=== PATIENT | female | born 1965 | race Two or more races ===

== ENCOUNTER 2022-03-29 12:37 | Outpatient (REF) | payer MEDICARE, MEDICAID, SELFPAY ==
[2022-03-29 14:14] LABS: Thyroid Stimulating Hormone 1.29 uIU/mL (0.32-4.0)
[2022-03-29 14:39] LABS: Folate 13.7 ng/mL (> or = 4.0); Vitamin B12 678 pg/mL (200-900)
== END 2022-03-29 12:38 | disposition home or self-care (01) ==
LOC: HO.LAB 12:37
PROVIDERS: PCP Hospitalist; Visit Provider Psychiatry & Neurology Neurology
DX: G40.909 Epilepsy, unspecified, not intractable, without status epilepticus (principal); Z79.899 Other long term (current) drug therapy
CPT/HCPCS: 36415; 80164; 82607; 82746; 84443

== ENCOUNTER 2022-05-18 14:07 | Outpatient (REF) | payer MEDICARE, MEDICAID, SELFPAY | END 2022-05-18 14:08 | disposition home or self-care (01) | LOC: HO.XRAY 14:07 | PROVIDERS: Visit Provider Radiology Diagnostic Radiology | DX: Z13.89 Encounter for screening for other disorder (principal) ==

== ENCOUNTER 2022-05-24 10:17 | Outpatient (REF) | payer MEDICARE, MEDICAID, SELFPAY ==
--- NOTE | ~2022-05-24 | MR_ITS ---
EXAMINATION: MRI OF THE BRAIN WITHOUT CONTRAST CLINICAL INFORMATION: Seizure disorder. COMPARISON: There are no prior studies available for comparison. TECHNIQUE: MRI of the brain was obtained using routine sequences without contrast. FINDINGS: No diffusion abnormalities are identified to suggest an acute or subacute infarct. No mass effect or midline shift is seen. The ventricles and sulci are normal in size. There are a few scattered areas of hyperintense T2 and FLAIR signal in the white matter which are nonspecific. The hippocampi are symmetric in size and signal. No extra-axial fluid collections are seen. The brainstem and cerebellum are normal. No pathologic magnetic susceptibility artifact is identified on the gradient refocused acquisition. The craniovertebral junction, marrow signal, and midline structures are normal. There are severe spondylitic changes in the upper cervical spine with heterogenous marrow signal. The major intracranial flow-voids at the level of the [place] are preserved. The dural venous sinus flow-voids are maintained. There is trace fluid in the right mastoid tip. There is polypoid mucoperiosteal thickening in the right maxillary sinus and there is opacification of the left greater than right frontal sinuses. MR/MR head/brain wo con IMPRESSION: 1.There are no acute bleeds or infarcts. No masses are demonstrated. 2. There are a few foci of nonspecific white matter hyperintense T2/FLAIR signal. The hippocampi are symmetric in size and signal. 3. There are severe spondylitic changes throughout the cervical spine with heterogenous marrow signal. Recommend MRI scan of the cervical spine without and with contrast for further assessment.
== END 2022-05-24 10:18 | disposition home or self-care (01) ==
LOC: HO.MRI 10:17
PROVIDERS: Visit Provider Psychiatry & Neurology Neurology
DX: G40.909 Epilepsy, unspecified, not intractable, without status epilepticus (principal)
CPT/HCPCS: 70551

== ENCOUNTER 2022-06-27 10:18 | Outpatient (REF) | payer MEDICARE, MEDICAID, SELFPAY ==
[2022-06-29 00:39] LABS: HPV mRNA E6/E7 rflx Not Detected (Not Detected)
== END 2022-06-27 10:19 | disposition home or self-care (01) ==
LOC: HO.LNP 10:18
PROVIDERS: PCP Hospitalist; Visit Provider Obstetrics & Gynecology
DX: Z01.419 Encounter for gynecological examination (general) (routine) without abnormal findings (principal); N83.209 Unspecified ovarian cyst, unspecified side; Z90.710 Acquired absence of both cervix and uterus
CPT/HCPCS: 87624; 88142; 99212

== ENCOUNTER → 2022-07-18 14:07 | Outpatient (BNVA) | payer MEDICARE, MEDICAID, SELFPAY | PROVIDERS: PCP Hospitalist; Visit Provider Urology | DX: R33.9 Retention of urine, unspecified (principal) | CPT/HCPCS: 51798; 99202 ==

== ENCOUNTER 2022-07-19 10:55 | Outpatient (REF) | payer MEDICARE, MEDICAID, SELFPAY ==
--- NOTE | ~2022-07-19 | US_ITS ---
EXAMINATION: US PELVIS CLINICAL INFORMATION: Ovarian cyst; history of partial hysterectomy. COMPARISON: None TECHNIQUE: Ultrasound of the pelvis is performed using both transabdominal and transvaginal transducers along with Doppler. Transvaginal imaging is performed due to inadequate visualization transabdominally. FINDINGS: Uterus: The uterus is surgically absent and is not identified. Adnexa: Neither ovary is visualized with certainty. Within the right adnexal region, a 1.7 x 1.2 x 2.4 cm hypoechoic, circumscribed collection is seen, without associated color Doppler flow. No pelvic free fluid is seen. US/US pelvic and transvaginal IMPRESSION: The uterus and bilateral ovaries are nonvisualized. A hypoechoic collection is seen within the right adnexa, possibly a complex paraovarian cyst, or possibly an endometrioma. This could be more fully evaluated with pelvic MRI, if clinically indicated. At a minimum, consider follow-up ultrasound imaging in 3 months to ensure stability/regression.
== END 2022-07-19 10:56 | disposition home or self-care (01) ==
LOC: HO.US 10:55
PROVIDERS: Visit Provider Obstetrics & Gynecology
DX: N83.209 Unspecified ovarian cyst, unspecified side (principal)
CPT/HCPCS: 76830; 76856

== ENCOUNTER 2022-07-20 14:17 | Outpatient (REF) | payer MEDICARE, MEDICAID, SELFPAY ==
--- NOTE | ~2022-07-20 | MM_ITS ---
EXAMINATION: MM SCREENING DIGITAL BREAST TOMOSYNTHESIS, BILATERAL CLINICAL INFORMATION: Screening. Asymptomatic. Remote prior mammography decades ago, no longer available. Family history breast cancer, mother. The lifetime risk of breast cancer based on the Tyrer-Cuzick Model is 12%. COMPARISON: None (current study represents new baseline exam). TECHNIQUE: Digital breast tomosynthesis is performed in both the craniocaudal and mediolateral oblique views along with computer-aided detection (CAD). Synthesized 2D images are generated from the tomosynthesis. FINDINGS: There are scattered areas of fibroglandular density (ACR BI-RADS breast composition Category b). There is no significant mass or architectural abnormality. The axilla are unremarkable. The skin contours are smooth. There are regional calcifications in both breasts central upper breast, more numerous on left. These are combination of round and punctate calcifications. Patient will be recalled to obtain magnification views to fully characterize new baseline appearance. MM/MM tomosynthesis screening BI IMPRESSION: Bilateral regional calcifications central and upper breasts, more numerous on left. ASSESSMENT: BI-RADS 0: Incomplete - Need Additional Imaging Evaluation RECOMMENDATION: 1. Additional views of the bilateral breasts (magnification CC, magnification ML). 2. Radiology department staff will contact the patient for additional imaging. This patient's information was entered into a reminder system with a target due date for their next mammogram.
== END 2022-07-20 14:18 | disposition home or self-care (01) ==
LOC: HO.MAMMO 14:17
PROVIDERS: Visit Provider Obstetrics & Gynecology
DX: Z12.31 Encounter for screening mammogram for malignant neoplasm of breast (principal)
CPT/HCPCS: 77063; 77067

== ENCOUNTER 2022-07-28 13:36 | Outpatient (REF) | payer MEDICARE, MEDICAID, SELFPAY ==
--- NOTE | ~2022-07-28 | MM_ITS ---
EXAMINATION: MM DIAGNOSTIC DIGITAL MAMMOGRAPHY, BILATERAL CLINICAL INFORMATION: Bilateral calcifications on baseline study. COMPARISON: Mammography: Mammography of 07/20/2022. TECHNIQUE: Digital mammography is performed in the following views: Spot magnification views of both breasts in craniocaudal and 90 degree mediolateral views. FINDINGS: There are scattered areas of fibroglandular density (ACR BI-RADS breast composition Category b). Calcifications are noted within the upper outer aspects of both breasts which are rounded and punctate. They do not layer on 90 degree views. No linear or branching forms are identified. Recommend bilateral mammography with spot magnification views. Results are provided to the patient at time of visit by the technologist. MM/MM added views BI IMPRESSION: Probably benign calcifications bilaterally for which 6 month follow-up studies are recommended. ASSESSMENT: BI-RADS 3: Probably Benign. RECOMMENDATION: Diagnostic mammography in 6 months. This patient's information was entered into a reminder system with a target due date for their next mammogram.
== END 2022-07-28 13:37 | disposition home or self-care (01) ==
LOC: HO.MAMMO 13:36
PROVIDERS: PCP Hospitalist; Visit Provider Obstetrics & Gynecology
DX: R92.1 Mammographic calcification found on diagnostic imaging of breast (principal)
CPT/HCPCS: 77066

== ENCOUNTER → 2022-08-03 10:35 | Outpatient (BNVA) | payer MEDICARE, MEDICAID, SELFPAY | PROVIDERS: PCP Hospitalist; Visit Provider Obstetrics & Gynecology | DX: N83.291 Other ovarian cyst, right side (principal) | CPT/HCPCS: 99212 ==

== ENCOUNTER → 2022-08-09 10:15 | Outpatient (BNVA) | payer MEDICARE, MEDICAID, SELFPAY | PROVIDERS: PCP Hospitalist; Visit Provider Physician Assistant | DX: K59.00 Constipation, unspecified (principal); K62.5 Hemorrhage of anus and rectum; R33.9 Retention of urine, unspecified | CPT/HCPCS: 99202 ==

== ENCOUNTER 2022-08-28 11:05 | Outpatient (REF) | payer MEDICARE, MEDICAID, SELFPAY ==
--- NOTE | ~2022-08-28 | MR_ITS ---
EXAMINATION: MR PELVIS WITHOUT AND WITH CONTRAST CLINICAL INFORMATION: Ovarian cyst. History of hysterectomy greater than 30 years ago for uterine cancer. COMPARISON: Pelvic ultrasound June 2022. TECHNIQUE: Sagittal, axial and coronal sequences through the pelvis with and without contrast. Patient received 10 mL Gadavist IV contrast. FINDINGS: The uterus has been removed. Ovaries are not identified. There is oval-shaped soft tissue seen in the pelvis posterior to the right side of the bladder, adjacent to the right side of the vaginal cuff and anterior to the right side of the sigmoid colon. This measures 1.4 x 2.6 x 1 cm in longitudinal transverse and AP dimension. This is low to intermediate signal on T1-weighted sequences, low signal on T2-weighted sequences and demonstrates mild homogeneous enhancement. There is diverticulosis of the distal colon. There are areas of apparent wall thickening in the distal colon and rectum which may be due to diverticular disease and underdistention. The uterus has been removed. The ovaries are not seen and may have been removed. No ascites. No adenopathy. No hernia. Postsurgical changes to the low midline abdominal wall. Degenerative changes of the spine. MR/MR pelvis wo/w con IMPRESSION: Post total hysterectomy. Ovaries are not seen. 1.4 x 2.6 x 1 cm low signal mass with mild homogeneous enhancement adjacent to the right posterior bladder wall. Differential would include recurrent uterine cancer, desmoid tumor related to patient's surgery, or other fibrous or soft tissue tumor. This does not have signal characteristics to suggest endometrioma. Comparison with old outside imaging if available is recommended. Otherwise, short-term interval follow up ultrasound or MRI or PET/CT scan should be considered.
== END 2022-08-28 11:06 | disposition home or self-care (01) ==
LOC: HO.MRI 11:05
PROVIDERS: PCP Hospitalist; Visit Provider Obstetrics & Gynecology
DX: N83.299 Other ovarian cyst, unspecified side (principal)
CPT/HCPCS: 72197; A9585

== ENCOUNTER → 2022-09-07 12:19 | Outpatient (BNVA) | payer MEDICARE, MEDICAID, SELFPAY | PROVIDERS: PCP Hospitalist; Visit Provider Obstetrics & Gynecology | DX: R19.00 Intra-abdominal and pelvic swelling, mass and lump, unspecified site (principal); Z85.42 Personal history of malignant neoplasm of other parts of uterus | CPT/HCPCS: 99212 ==

== ENCOUNTER → 2022-09-27 10:44 | Outpatient (BNVA) | payer MEDICARE, MEDICAID, SELFPAY | PROVIDERS: PCP Hospitalist; Visit Provider Urology | DX: R33.9 Retention of urine, unspecified (principal); R19.00 Intra-abdominal and pelvic swelling, mass and lump, unspecified site; Z85.42 Personal history of malignant neoplasm of other parts of uterus; Z79.899 Other long term (current) drug therapy | CPT/HCPCS: 51798; 99212 ==

== ENCOUNTER 2022-11-09 11:14 | Day surgery (SDC) | payer MEDICARE, MEDICAID, SELFPAY ==
--- NOTE | 2022-11-08 13:22 | P.CONAN_ITS ---
Documented by User: Amy Frias NP 11/08/22 13:23 HPI - Anesthesia Eval Consult details Narrative: 57yo F for Colonoscopy [facility] resident. 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 Dry eyes GERD (gastroesophageal reflux disease) Hyperlipidemia Hypothyroidism Insomnia Malignant melanoma of skin Muscle weakness Nausea Ovarian cyst Personal history of malignant neoplasm of uterus Schizo affective schizophrenia Seasonal allergic rhinitis Skin cancer Sleep terrors Spinal stenosis Suicidal ideation Unsteadiness on feet Uterine cancer Wheezing Social History Social History Housing Other:: prison Are you a primary child care cook to a significant other at home: No Do you presently have visiting nurse or other home services: No Patient Tobacco Use Status: Never used Tobacco Have you been hit, kicked, punched, or otherwise hurt by someone within the past year? If so, by whom?: No Are you DNR?: No Advance Directives: No Advance Directives Information Provided: Yes Recently lost weight without trying: No Eating poorly because of decreased appetite: No Nutrition Risks: No Nutritional Risk Patient : No Sexual orientation: Straight/Heterosexual Gender identity: Female Meds Allergies Allergy/AdvReac Type Severity Reaction Status Date / Time codeine Allergy Intermediate Hives Verified 09/27/22 10:49 Penicillins Allergy Intermediate Rash Verified 09/27/22 10:49 aspirin Allergy Mild Rash Verified 09/27/22 10:49 Home Medications Medication Instructions Recorded Confirmed Last Taken Type albuterol sulfate 90 mcg/actuation 2 puff inhalation Q6H PRN Wheezing 06/27/22 11/07/22 Unknown History aerosol inhaler atorvastatin 20 mg tablet 20 mg PO DAILY 06/27/22 11/07/22 Unknown History famotidine 20 mg tablet (Pepcid) 20 mg PO DAILY PRN Heartburn 06/27/22 11/08/22 Unknown History fluticasone propionate 50 1 spray intranasal DAILY 06/27/22 11/07/22 Unknown History mcg/actuation nasal spray,suspension (Flonase Allergy Relief) gabapentin 100 mg capsule 200 mg PO TID 06/27/22 11/08/22 Unknown History levothyroxine 75 mcg capsule 75 mcg PO DAILY 06/27/22 11/07/22 Unknown History propranolol 20 mg tablet 20 mg PO BID 06/27/22 11/08/22 Unknown History quetiapine 50 mg tablet (Seroquel) 50 mg PO BID 06/27/22 11/07/22 Unknown History trazodone 50 mg tablet 25 mg PO Q6-8H PRN Anxiety 06/27/22 11/08/22 Unknown History valproic acid 250 mg capsule 500 mg PO BID 06/27/22 11/08/22 Unknown History Cepacol (with benzocain-menth) 2 mariano PO Q8-10H PRN Sore Throat 11/08/22 11/08/22 Unknown History acetaminophen 650 mg tablet 650 mg PO QID PRN Fever 11/08/22 11/08/22 Unknown History benztropine 0.5 mg tablet 0.5 mg PO BID PRN Muscle Spasm 11/08/22 11/08/22 Unknown History bethanechol chloride 50 mg tablet 50 mg PO TID 11/08/22 11/08/22 Unknown History calcium carbonate 600 mg calcium 1,200 mg PO DAILY 11/08/22 11/08/22 Unknown History (1,500 mg) tablet cholecalciferol (vitamin D3) 10 10 mcg PO DAILY 11/08/22 11/08/22 Unknown Histo ry mcg (400 unit) capsule (Vitamin D3) famotidine 20 mg tablet 20 mg PO BID 11/08/22 11/08/22 Unknown History guaifenesin 100 mg/5 mL oral liquid 200 mg PO Q4H PRN Cough 11/08/22 11/08/22 Un known History ibuprofen 600 mg tablet 600 mg PO Q6H PRN Pain 11/08/22 11/08/22 Unknown History lactulose 10 gram/15 mL oral 20 g PO BID 11/08/22 11/08/22 Unknown History solution lanolin alcohols-mineral 1 appl topical DAILY PRN Dry Skin 11/08/22 11/08/22 Unknown History oil-w.petrolatum-ceresin topical cream (Minerin Creme topical) lidocaine 4 % topical patch 1 patch topical DAILY 11/08/22 11/08/22 Unknown History loratadine 10 mg tablet 10 mg PO DAILY PRN Allergy Symptoms 11/08/22 11/08/22 Unknown History melatonin 3 mg tablet 3 mg PO BEDTIME 11/08/22 11/08/22 Unknown History polyethylene glycol 3350 17 gram 17 g PO DAILY PRN Constipation 11/08/22 11/08/22 Unknown History oral powder packet (Miralax) risperidone 1 mg tablet (Risperdal) 1 mg PO BID 11/08/22 11/08/22 Unknown History sennosides 8.6 mg capsule (senna) 8.6 mg PO DAILY PRN Constipation 11/08/22 11/08/22 Unknown History sodium phosphates 19 gram-7 118 ml HI DAILY PRN Constipation 11/08/22 11/08/22 Unknown History gram/118 mL enema (Fleet Enema) terazosin 1 mg capsule 1 mg PO BEDTIME 11/08/22 11/08/22 Unknown History Exam Exam Date and Time: November 08, 2022 1322 Pertinent Lab Results Pertinent Lab Results: Labs from outside facility on chart Assessment and Plan Assessment Anesthesia Assessment: Chart Reviewed Documented by User: Woodrow Hahn MD 11/09/22 12:58 [facility] Past Medical History Medical History Agitation Back pain Chronic cough Chronic pain Chronic pharyngitis Constipation Cough COVID-19 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 Dry eyes GERD (gastroesophageal reflux disease) Hyperlipidemia Hypothyroidism Insomnia Malignant melanoma of skin Muscle weakness Nausea Ovarian cyst Personal history of malignant neoplasm of uterus Schizo affective schizophrenia Seasonal allergic rhinitis Skin cancer Sleep terrors Spinal stenosis Suicidal ideation Unsteadiness on feet Uterine cancer Wheezing Family History Family history of problems with anesthesia: No Surgical History History of Problems with Anesthesia: No Social History Social History Housing Other:: prison Are you a primary child care cook to a significant other at home: No Do you presently have visiting nurse or other home services: No Patient Tobacco Use Status: Never used Tobacco Have you been hit, kicked, punched, or otherwise hurt by someone within the past year? If so, by whom?: No Are you DNR?: No Advance Directives: No Advance Directives Information Provided: Yes Recently lost weight without trying: No Eating poorly because of decreased appetite: No Nutrition Risks: No Nutritional Risk Patient : No Sexual orientation: Straight/Heterosexual Gender identity: Female Meds Allergies Allergy/AdvReac Type Severity Reaction Status Date / Time codeine Allergy Intermediate Hives Verified 09/27/22 10:49 Penicillins Allergy Intermediate Rash Verified 09/27/22 10:49 aspirin Allergy Mild Rash Verified 09/27/22 10:49 Home Medications Medication Instructions Recorded Confirmed Last Taken Type albuterol sulfate 90 mcg/actuation 2 puff inhalation Q6H PRN Wheezing 06/27/22 11/07/22 Unknown History aerosol inhaler atorvastatin 20 mg tablet 20 mg PO DAILY 06/27/22 11/07/22 Unknown History famotidine 20 mg tablet (Pepcid) 20 mg PO DAILY PRN Heartburn 06/27/22 11/08/22 Unknown History fluticasone propionate 50 1 spray intranasal DAILY 06/27/22 11/07/22 Unknown History mcg/actuation nasal spray,suspension (Flonase Allergy Relief) gabapentin 100 mg capsule 200 mg PO TID 06/27/22 11/08/22 Unknown History levothyroxine 75 mcg capsule 75 mcg PO DAILY 06/27/22 11/07/22 Unknown History propranolol 20 mg tablet 20 mg PO BID 06/27/22 11/08/22 Unknown History quetiapine 50 mg tablet (Seroquel) 50 mg PO BID 06/27/22 11/07/22 Unknown History trazodone 50 mg tablet 25 mg PO Q6-8H PRN Anxiety 06/27/22 11/08/22 Unknown History valproic acid 250 mg capsule 500 mg PO BID 06/27/22 11/08/22 Unknown History Cepacol (with benzocain-menth) 2 mariano PO Q8-10H PRN Sore Throat 11/08/22 11/08/22 Unknown History acetaminophen 650 mg tablet 650 mg PO QID PRN Fever 11/08/22 11/08/22 Unknown History benztropine 0.5 mg tablet 0.5 mg PO BID PRN Muscle Spasm 11/08/22 11/08/22 Unknown History bethanechol chloride 50 mg tablet 50 mg PO TID 11/08/22 11/08/22 Unknown History calcium carbonate 600 mg calcium 1,200 mg PO DAILY 11/08/22 11/08/22 Unknown History (1,500 mg) tablet cholecalciferol (vitamin D3) 10 10 mcg PO DAILY 11/08/22 11/08/22 Unknown History mcg (400 unit) capsule (Vitamin D3) famotidine 20 mg tablet 20 mg PO BID 11/08/22 11/08/22 Unknown History guaifenesin 100 mg/5 mL oral liquid 200 mg PO Q4H PRN Cough 11/08/22 11/08/22 Unknown History ibuprofen 600 mg tablet 600 mg PO Q6H PRN Pain 11/08/22 11/08/22 Unknown History lactulose 10 gram/15 mL oral 20 g PO BID 11/08/22 11/08/22 Unknown History solution lanolin alcohols-mineral 1 appl topical DAILY PRN Dry Skin 11/08/22 11/08/22 Unknown History oil-w.petrolatum-ceresin topical cream (Minerin Creme topical) lidocaine 4 % topical patch 1 patch topical DAILY 11/08/22 11/08/22 Unknown History loratadine 10 mg tablet 10 mg PO DAILY PRN Allergy Symptoms 11/08/22 11/08/22 Unknown History melatonin 3 mg tablet 3 mg PO BEDTIME 11/08/22 11/08/22 Unknown History polyethylene glycol 3350 17 gram 17 g PO DAILY PRN Constipation 11/08/22 11/08/22 Unknown History oral powder packet (Miralax) risperidone 1 mg tablet (Risperdal) 1 mg PO BID 11/08/22 11/08/22 Unknown History sennosides 8.6 mg capsule (senna) 8.6 mg PO DAILY PRN Constipation 11/08/22 11/08/22 Unknown History sodium phosphates 19 gram-7 118 ml HI DAILY PRN Constipation 11/08/22 11/08/22 Unknown History gram/118 mL enema (Fleet Enema) terazosin 1 mg capsule 1 mg PO BEDTIME 11/08/22 11/08/22 Unknown History Exam Airway Mallampati Class: II TM Dist: >3cm Neck ROM: Full Denture: Upper Loose/Missing/Broken Teeth: Yes Assessment and Plan Assessment Anesthesia Assessment: Anesthesia Plan Discussed Final Anesthetic Review Family History of Problems with Anesthesia: No History of Problems with Anesthesia: No NPO: Yes ASA Class: III Final Preanesthetic Review: No Changes in Pt Med Stat, Meds/Allgs Chart Reviewed, Consent Obtained/Reviewed and Anes Risks/Benef Reviewed Patient Risk: Intermediate Procedure Risk: Low Anesthetic Plan Anesthetic Plan: MAC: Disposition: Standard PACU
[2022-11-08 13:30] VITALS: BMI 36.5
--- NOTE | 2022-11-09 11:26 | MHC.SHP ---
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 Dry eyes GERD (gastroesophageal reflux disease) Hyperlipidemia Hypothyroidism Insomnia Malignant melanoma of skin Muscle weaknes) History of Previous Operations: Relevant previous surgery/procedure and date(s) (hysterectomy) Allergies: Allergies Allergy/AdvReac Type Severity Reaction Status Date / Time codeine Allergy Intermediate Hives Verified 09/27/22 10:49 Penicillins Allergy Intermediate Rash Verified 09/27/22 10:49 aspirin Allergy Mild Rash Verified 09/27/22 10:49 Review of Systems Sugical H&P ROS: Negative: Constitution, Cardiovascular, Respiratory, Neurological, Psychiatric, Hem-Onc, Allergic/Immunologic, Gastrointestinal, Genitourinary, Musculoskeletal, Integumentary, Endocrine and Eyes/Ears/Nose/Throat Exam Surgical H&P Exam: Normal: HEENT, Normal: Heart, Normal: Lungs, Normal: Extremities, Normal: Abdomen, Normal: Skin and Normal: Neurological Plan Diagnosis/Plan: Unchanged I have reviewed the history and physical and performed a pertinent physical examination on my patient. No changes have occurred unless specified. Time Spent With Patient Time: Total time managing care of this patient today ____ minutes.
[2022-11-09] MEDS: Sodium Phosphate,Mono-Dibasic 133 ML ENEMA PR (11:45)
[2022-11-09 12:02] VITALS: BP 141/82; PULSE 75; RESP 18; TEMP 36.2; O2SAT 99
[2022-11-09] MEDS: Lactated Ringers 1,000 ML 100 ML IVCONT (12:18)
--- NOTE | 2022-11-09 12:55 | W.PM.OPN ---
Operative Note Operative Note Date of Service: 11/09/22 Narrative: Operative Information Procedure Description: Colonoscopy Indication: screening Anesthesia: MAC COLONOSCOPY Instrument: Olympus variable stiffness pediatric scope 190L Colonoscopy Monitoring: Vital signs and clinical assessment, continuous EKG monitoring, Pulse oximetry, Carbon Dioxide monitoring and blood pressure monitoring were done throughout the procedure. Colon withdrawal time was 10 minutes. Procedure: The patient was placed in the left lateral decubitis position and pre-procedure medications were administered. After a digital rectal examination of the ano-rectum, the video colonoscope was inserted into the rectum and advanced through the colon to the cecum/TI. The colonoscope was slowly withdrawn in a retrograde panoramic fashion and the colon mucosa was carefully examined including a retroflexed view of the rectum. Findings and interventions are described below. Procedure Difficulty: difficult due to poor prep Findings: Terminal Ileum-not seen Cecum:normal Ascending Colon: normal Transverse Colon - 5-7 mm sessile polyp removed with cold snare Descending Colon:normal Sigmoid Colon: normal Rectum: Retroflexion with small internal hemorrhoids, grade I, distal erythema bx taken Anorectum - normal Colon preparation: [place] Bowel Preparation Scale Right colon; 0-1 Transverse colon: 1-2 Left colon; 1-2 (0 = Unprepared colon segment with mucosa not seen due to solid stool that cannot be cleared. 1 = Portion of mucosa of the colon segment seen, but other areas of the colon segment not well seen due to staining, residual stool and/or opaque liquid. 2 = Minor amount of residual staining, small fragments of stool and/or opaque liquid, but mucosa of colon segment seen well. 3 = Entire mucosa of colon segment seen well with no residual staining, small fragments of stool or opaque liquid) Impression and Post Procedure Diagnosis: proctitis colon polyp-not retrieved hemorrhoids Plan: High fiber diet leaflet Avoid straining at stool, epsom salts and sitz bath, anusol supps or cream Repeat Colonoscopy in 6 months, and try 2 d of clears next time Above findings were reviewed with the patient and relevant handouts were provided if indicated.
[2022-11-09 12:59] VITALS: BP 133/74; PULSE 76; RESP 16; TEMP 36.1; O2SAT 100
[2022-11-09 13:14] VITALS: BP 145/60; PULSE 70; RESP 16; O2SAT 100
[2022-11-09 13:29] VITALS: BP 135/78; PULSE 72; RESP 16; TEMP 36.1; O2SAT 100
== END 2022-11-09 13:41 | disposition home or self-care (01) ==
PROVIDERS: PCP Hospitalist; Visit Provider Internal Medicine Gastroenterology
PROC: 0DJD8ZZ Inspection of Lower Intestinal Tract, Via Natural or Artificial Opening Endoscopic (ICD-10-PCS; CPT 45378; principal; 2022-11-09 12:30)
DX: Z12.11 Encounter for screening for malignant neoplasm of colon (principal); K63.5 Polyp of colon; K64.0 First degree hemorrhoids; K62.89 Other specified diseases of anus and rectum; K59.00 Constipation, unspecified; K21.9 Gastro-esophageal reflux disease without esophagitis; G89.29 Other chronic pain; M54.9 Dorsalgia, unspecified; M62.81 Muscle weakness (generalized); R05.3 Chronic cough; E78.5 Hyperlipidemia, unspecified; E03.9 Hypothyroidism, unspecified; Z87.820 Personal history of traumatic brain injury; Z86.16 Personal history of COVID-19; Z88.0 Allergy status to penicillin; Z88.8 Allergy status to other drugs, medicaments and biological substances; Z79.51 Long term (current) use of inhaled steroids; Z79.899 Other long term (current) drug therapy
CPT/HCPCS: 45385; 45380; 88305; J2250

== ENCOUNTER → 2022-11-29 09:51 | Outpatient (BNVA) | payer MEDICARE, MEDICAID, SELFPAY | PROVIDERS: PCP Hospitalist; Visit Provider Physician Assistant | DX: K59.00 Constipation, unspecified (principal); K63.5 Polyp of colon; Z98.890 Other specified postprocedural states | CPT/HCPCS: 99212 ==

== ENCOUNTER 2023-01-07 09:50 | Emergency (ER) | payer MEDICARE, MEDICAID, SELFPAY ==
--- NOTE | ~2023-01-07 | XR_ITS ---
EXAMINATION: Left shoulder and left humerus x-rays CLINICAL INFORMATION: Pain post fall COMPARISON: None. TECHNIQUE: 2 views of the left humerus and 3 views of the left shoulder FINDINGS: Left shoulder: Bone alignment is normal. No fracture or dislocation. The glenohumeral joint is normal. There is arthritis at the acromioclavicular joint. There is an undersurface acromial osteophyte. Soft tissues are normal. Left humerus: Bone alignment is normal. No fracture or dislocation. Arthritis at the acromioclavicular joint. Joint spaces are otherwise normal. Question soft tissue swelling. XR/XR humerus LT IMPRESSION: No fracture or dislocation. Arthritis at the acromioclavicular joint.
--- NOTE | ~2023-01-07 | XR_ITS ---
EXAMINATION: Left shoulder and left humerus x-rays CLINICAL INFORMATION: Pain post fall COMPARISON: None. TECHNIQUE: 2 views of the left humerus and 3 views of the left shoulder FINDINGS: Left shoulder: Bone alignment is normal. No fracture or dislocation. The glenohumeral joint is normal. There is arthritis at the acromioclavicular joint. There is an undersurface acromial osteophyte. Soft tissues are normal. Left humerus: Bone alignment is normal. No fracture or dislocation. Arthritis at the acromioclavicular joint. Joint spaces are otherwise normal. Question soft tissue swelling. XR/XR shoulder LT min 2V IMPRESSION: No fracture or dislocation. Arthritis at the acromioclavicular joint.
[2023-01-07 09:54] VITALS: BP 116/69; BP 121/64; PULSE 63; PULSE 66; RESP 16; O2SAT 98; BMI 40.0
--- NOTE | 2023-01-07 10:09 | PC.NURSE ---
pt a&ox3, vss, pt comes in via [facility] after falling at [facility]. 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 -headstrike, -LOC, -thinners. pt verbalizing numbness/tingling in the left extremity. CMS intact. pulses palpable. LE tender to the touch. call veloz placed within reach.
--- NOTE | 2023-01-07 10:33 | ED_ITS ---
HPI - Extremity Problem General Chief complaint: Extremity Injury, Upper Stated complaint: FROM [facility], FALL 2 DAYS AGO, L ARM PAIN Time Seen by Provider: 01/07/23 10:33 Source: patient, EMS and old records reviewed Mode of arrival: EMS Limitations: no limitations History of Present Illness HPI Narrative: 57-year-old female with a history of TBI, cognitive impairment, hx recurrent falls w/ unsteady gait, GERD, HLD, constipation, HLD, pelvic mass (plan for surgery in Jan) who presents to the ER from [facility] for evaluation of left shoulder pain that started today. She states she was sitting in her chair when she felt a sudden pop and crack in the left upper shoulder, left upper arm. She states she did fall 2 days ago onto the left arm after bending down to pick something up on the floor. She had some mild left arm and shoulder pain since then but today's episode was severe. She felt almost like it dislocated and relocated. She has going pain of the left upper extremity. She has limited range of motion. She reports some intermittent numbness and tingling in the distal left arm. No weakness. MD Complaint: extremity pain and extremity swelling Onset (ago): hour(s) Pain Consistency: intermittent Location: left and upper extremity Quality: aching Radiation: distal Relieving factors: immobilization and rest Exacerbating factors: range of motion and palpation Associated symptoms: denies other symptoms Related Data Home Medications Medication Instructions Recorded Confirmed albuterol sulfate 90 mcg/actuation 2 puff inhalation Q6H PRN Wheezing 06/27/22 11/29/22 aerosol inhaler atorvastatin 20 mg tablet 20 mg PO DAILY 06/27/22 11/29/22 fluticasone propionate 50 1 spray intranasal DAILY 06/27/22 11/29/22 mcg/actuation nasal spray,suspension (Flonase Allergy Relief) gabapentin 100 mg capsule 200 mg PO TID 06/27/22 11/29/22 levothyroxine 75 mcg capsule 75 mcg PO DAILY 06/27/22 11/29/22 propranolol 20 mg tablet 20 mg PO BID 06/27/22 11/29/22 quetiapine 50 mg tablet (Seroquel) 50 mg PO BID 06/27/22 11/29/22 trazodone 50 mg tablet 25 mg PO Q6-8H PRN Anxiety 06/27/22 11/29/22 valproic acid 250 mg capsule 500 mg PO BID 06/27/22 11/29/22 Cepacol (with benzocain-menth) 2 mariano PO Q8-10H PRN Sore Throat 11/08/22 11/29/22 acetaminophen 650 mg tablet 650 mg PO QID PRN Fever 11/08/22 11/29/22 benztropine 0.5 mg tablet 0.5 mg PO BID PRN Muscle Spasm 11/08/22 11/29/22 bethanechol chloride 50 mg tablet 50 mg PO TID 11/08/22 11/29/22 calcium carbonate 600 mg calcium 1,200 mg PO DAILY 11/08/22 11/29/22 (1,500 mg) tablet cholecalciferol (vitamin D3) 10 10 mcg PO DAILY 11/08/22 11/29/22 mcg (400 unit) capsule (Vitamin D3) famotidine 20 mg tablet 20 mg PO BID 11/08/22 11/29/22 guaifenesin 100 mg/5 mL oral liquid 200 mg PO Q4H PRN Cough 11/08/22 11/29/22 ibuprofen 600 mg tablet 600 mg PO Q6H PRN Pain 11/08/22 11/29/22 lactulose 10 gram/15 mL oral 20 g PO BID 11/08/22 11/29/22 solution lanolin alcohols-mineral 1 appl topical DAILY PRN Dry Skin 11/08/22 11/29/22 oil-w.petrolatum-ceresin topical cream (Minerin Creme topical) lidocaine 4 % topical patch 1 patch topical DAILY 11/08/22 11/29/22 loratadine 10 mg tablet 10 mg PO DAILY PRN Allergy Symptoms 11/08/22 11/29/22 melatonin 3 mg tablet 3 mg PO BEDTIME 11/08/22 11/29/22 polyethylene glycol 3350 17 gram 17 g PO DAILY PRN Constipation 11/08/22 11/29/22 oral powder packet (Miralax) risperidone 1 mg tablet (Risperdal) 1 mg PO BID 11/08/22 11/29/22 sennosides 8.6 mg capsule (senna) 8.6 mg PO DAILY PRN Constipation 11/08/22 11/29/22 sodium phosphates 19 gram-7 118 ml MO DAILY PRN Constipation 11/08/22 11/29/22 gram/118 mL enema (Fleet Enema) terazosin 1 mg capsule 1 mg PO BEDTIME 11/08/22 11/08/22 Previous Rx's Medication Instructions Recorded hydrocortisone 2.5 % topical cream 1 appl MO BID PRN hemorrhoids #30 08/09/22 with perineal applicator grams (Proctozone-HC) prazosin 2 mg capsule 2 mg PO BEDTIME 90 days #90 caps 09/27/22 peg-electrolyte solution 420 gram 240 ml PO ONCE PRN colon prep 1 11/29/22 oral solution day #4,000 mL polyethylene glycol 3350 17 17 g PO DAILY PRN laxative effect 11/29/22 gram/dose oral powder (Miralax) #510 grams Allergies Allergy/AdvReac Type Severity Reaction Status Date / Time codeine Allergy Intermediate Hives Verified 01/07/23 09:53 Penicillins Allergy Intermediate Rash Verified 01/07/23 09:53 aspirin Allergy Mild Rash Verified 01/07/23 09:53 Review of Systems Review of Systems: Yes all other systems are reviewed and are negative PMFSH Past Medical History Medical History Agitation Back pain Chronic cough Chronic pain Chronic pharyngitis Constipation Cough COVID-19 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 Dry eyes GERD (gastroesophageal reflux disease) Hyperlipidemia Hypothyroidism Insomnia Malignant melanoma of skin Muscle weakness Nausea Ovarian cyst Personal history of malignant neoplasm of uterus Schizo affective schizophrenia Seasonal allergic rhinitis Skin cancer Sleep terrors Spinal stenosis Suicidal ideation Unsteadiness on feet Uterine cancer Wheezing Surgical History (Updated 11/29/22 @ 14:12 by Yanet Butler PA-C) Hx of colonoscopy Social History Social History Housing Other:: residential Are you a primary wound care physician to a significant other at home: No Do you presently have visiting nurse or other home services: No Alcohol intake: never Patient Tobacco Use Status: Never used Tobacco Smoked in Last 30 Days: No Use of substances other than those prescribed or required for medical reasons: No Advance Directives: Yes Advance Directives on File: Yes Advance Directives Date on File: 11/10/22 Patient : No Sexual orientation: Straight/Heterosexual Gender identity: Female Physical Exam Vital Signs: Vital Signs: Last Vital Signs Pulse 56 01/07/23 11:00 Resp 16 01/07/23 11:00 BP 130/73 01/07/23 11:00 Pulse Ox 100 01/07/23 11:00 O2 Del Method Room Air 01/07/23 11:00 BMI result Body Mass Index 40.0 Appearance: Alert. Oriented X3. No acute distress. Head: normocephalic, atraumatic. Eyes: Normal inspection ENT: Normal external inspection Neck: Normal inspection. Neck supple. CVS: Normal heart rate and rhythm. Pulses normal. Respiratory: No respiratory distress. Breath sounds normal. Abdomen: Soft and nontender. +BS x4 Skin: Skin warm and dry. Normal skin color. Normal skin turgor. No rashes. Extremities: No lower extremity edema. No joint swelling. Normal inspection of left upper extremity with some mild tenderness of the proximal humerus. She is able to passively abduct the shoulder to 180 degrees but with discomfort. No tenderness or limited range of motion of the left elbow. Neurovascularly intact distally. Compartments are soft compressible. Neuro/psych: Oriented X 3. No motor deficit. No sensory deficit. Delayed responses at times, speech is comprehensible. Neuro exam is nonfocal Medical Decision Making Medical Decision Making [facility] Narrative: 57-year-old female presents to the ER for evaluation of left shoulder pain that started today after hearing and feeling a ?crack? sensation. She has limited range of motion and some tenderness on exam. X-rays were performed which were unremarkable. EKG was performed which showed some J-point elevation. No known prior EKG in our system. Therefore blood work was done which revealed a troponin of less than 2.7. She has no chest pain. No evidence of ACS or cardiac etiology of her left shoulder pain. At this time she is stable for discharge home back to [facility]. Dr. gomes agrees Differential Diagnosis Differential Diagnoses: The differential diagnosis associated with the presentation includes Left shoulder strain, left shoulder sprain, proximal humerus fracture, clavicular fracture, rotator cuff injury, dislocation, paresthesias, less likely ACS or CVA Admission/Observation Consideration of admission/observation: Escalation of care including admission/observation considered Considered observation/admission if cardiac workup intact being positive however it was unremarkable. Consult Healthcare Provider Management of the patient was discussed with: Broadcast Maintenance Engineer Dr. gomes from [facility] Lab Data [facility] Lab Attestation statement: I reviewed the patient's lab results. Leukopenia, anemia, negative troponin 01/07/23 12:43 01/07/23 12:43 Labs: Lab Results 01/07/23 01/07/23 01/07/23 Range/Units 12:43 12:43 12:43 WBC 4.4 L (4.8-10.8) X10*3/uL RBC 3.63 L (4.20-5.50) X10*6/uL Hgb 11.3 L (12.0-16.0) g/dl Hct 34.6 L (37.0-47.0) % MCV 95.3 (80.0-98.0) fL MCH 31.1 (27.0-33.0) pg MCHC 32.7 (31.0-35.0) g/dl RDW 11.9 (11.0-16.0) % Plt Count 161 (160-400) X10*3/uL MPV 9.8 (9.4-12.3) fL Immature Gran % (Auto) 0.2 (0.0-0.4) % Neut % (Auto) 47.2 (45-73) % Lymph % (Auto) 36.4 (20-40) % Johnston % (Auto) 12.3 H (2-11) % Eos % (Auto) 3.2 (0-4) % Baso % (Auto) 0.7 (0-2) % Lymph # (Auto) 1.6 (1.2-4.9) X10*3/uL Johnston # (Auto) 0.5 (0.1-1.2) X10*3/uL Eos # (Auto) 0.1 (0.0-0.4) X10*3/uL Baso # (Auto) 0.0 (0.0-0.2) X10*3/uL Abs Immat Gran (auto) 0.01 (0.00-0.03) X10*3/uL Absolute Neuts (auto) 2.1 (2.0-8.3) x10*3/uL Absolute Nucleated RBC 0.000 (0.0-0.012) X10*3/uL Nucleated RBC % (auto) 0.0 (0.0-0.2) /100WBC Sodium 141 (135-145) mmol/L Potassium 4.2 (3.3-5.1) mmol/L Chloride 107 (96-108) mmol/L Carbon Dioxide 27 (22-29) mmol/L Anion Gap 11 L (12-20) BUN 20 H (9-16) mg/dL Creatinine 0.80 (0.5-1.4) mg/dL Estim Creat Clear Calc 100.8 Estimated GFR > 60 Random Glucose 75 (60-115) mg/dL Calcium 9.0 (8.4-10.2) mg/dL Magnesium 2.3 (1.6-2.6) mg/dL Total Bilirubin 0.4 (0.0-1.0) mg/dL Direct Bilirubin 0.1 (0.0-0.5) mg/dL AST 13 (5-31) U/L ALT 11 (0-31) U/L Alkaline Phosphatase 67 (39-117) U/L Troponin I High Sens < 2.7 (<3.5-17.0) ng/L Total Protein 6.5 (6.5-8.0) g/dL Albumin 3.7 (3.5-5.0) g/dL Independent Interpretation I performed an independent interpretation of an: EKG and Plain X-Ray Interpretation: X-ray of the shoulder and humerus reviewed, no appreciated fracture, agree 3 to instructional systems specialist repeat EKG with normal sinus rhythm, first-degree AV block, MO interval 218. Ventricular rate 60 beats per minute, there is some J-point elevation in leads 1, 2, aVL. No prior ECG for comparison Radiology Impression Discussion of test interpretation with radiology: I have reviewed the radiologist's reading. Radiologist Impression: EXAMINATION: Left shoulder and left humerus x-rays CLINICAL INFORMATION: Pain post fall? COMPARISON: None.? TECHNIQUE: 2 views of the left humerus and 3 views of the left shoulder? FINDINGS: Left shoulder: Bone alignment is normal. No fracture or dislocation. The glenohumeral joint is normal. There is arthritis at the acromioclavicular joint. There is an undersurface acromial osteophyte. Soft tissues are normal. Left humerus: Bone alignment is normal. No fracture or dislocation. Arthritis at the acromioclavicular joint. Joint spaces are otherwise normal. Question soft tissue swelling. XR/XR shoulder LT min 2V IMPRESSION: No fracture or dislocation. Arthritis at the acromioclavicular joint.? Discharge Plan Discharge Clinical Impression: Acute pain of left shoulder Patient Disposition: Xfer SNF Transfer Details: [facility] Instructions: Arm Pain (ED) Additional Instructions: Your x-rays today did not show any broken bones. Your lab workup was unremarkable. Follow-up with your doctor at [facility]. Take Motrin Tylenol as needed for pain. Apply ice to the area as needed for pain. If you develop new or worsening symptoms call 911 or come back to the ER for further evaluation. Prescriptions: No Action acetaminophen 650 mg Tablet 650 mg PO QID PRN (Reason: Fever) benztropine 0.5 mg Tablet 0.5 mg PO BID PRN (Reason: Muscle Spasm) calcium carbonate 600 mg calcium (1,500 mg) Tablet 1,200 mg PO DAILY bethanechol chloride 50 mg tablet 50 mg PO TID Cepacol (with benzocain-menth) 2 mariano PO Q8-10H PRN (Reason: Sore Throat) famotidine 20 mg Tablet 20 mg PO BID Fleet Enema 19-7 gram/118 mL Enema 118 ml MO DAILY PRN (Reason: Constipation) lidocaine 4 % Adhesive Patch,Medicated 1 patch TOPICAL DAILY polyethylene glycol 3350 [Miralax] 17 gram Powder In Packet 17 g PO DAILY PRN (Reason: Constipation) melatonin 3 mg Tablet 3 mg PO BEDTIME guaifenesin 100 mg/5 mL Liquid 200 mg PO Q4H PRN (Reason: Cough) ibuprofen 600 mg Tablet 600 mg PO Q6H PRN (Reason: Pain) loratadine 10 mg Tablet 10 mg PO DAILY PRN (Reason: Allergy Symptoms) lactulose 10 gram/15 mL Solution 20 g PO BID Minerin Creme Cream 1 appl TOPICAL DAILY PRN (Reason: Dry Skin) risperidone [Risperdal] 1 mg Tablet 1 mg PO BID senna 8.6 mg Capsule 8.6 mg PO DAILY PRN (Reason: Constipation) Rx Instructions: two tablets terazosin 1 mg Capsule 1 mg PO BEDTIME cholecalciferol (vitamin D3) [Vitamin D3] 10 mcg (400 unit) Capsule 10 mcg PO DAILY albuterol sulfate 90 mcg/actuation HFA aerosol inhaler 2 puff inhalation Q6H PRN (Reason: Wheezing) atorvastatin 20 mg tablet 20 mg PO DAILY fluticasone propionate [Flonase Allergy Relief] 50 mcg/actuation spray,suspension 1 spray intranasal DAILY Rx Instructions: administer into each nostril gabapentin 100 mg capsule 200 mg PO TID levothyroxine 75 mcg capsule 75 mcg PO DAILY propranolol 20 mg tablet 20 mg PO BID quetiapine [Seroquel] 50 mg tablet 50 mg PO BID trazodone 50 mg tablet 25 mg PO Q6-8H PRN (Reason: Anxiety) valproic acid 250 mg capsule 500 mg PO BID hydrocortisone [Proctozone-HC] 2.5 % cream with perineal applicator 1 appl MO BID PRN (Reason: hemorrhoids) Qty: 30 3RF Rx Instructions: apply MO BID prn prazosin 2 mg capsule 2 mg PO BEDTIME 90 Days Qty: 90 1RF peg-electrolyte soln 420 gram recon soln 240 ml PO ONCE PRN (Reason: colon prep) 1 Days Qty: 4000 0RF Rx Instructions: Start at 6:00pm the evening before procedure, drink one 8oz glass every 15 minutes until complete polyethylene glycol 3350 [Miralax] 17 gram/dose powder 17 g PO DAILY PRN (Reason: laxative effect) Qty: 510 6RF Rx Instructions: BID x 7 days prior to prep day
[2023-01-07 11:00] VITALS: BP 130/73; PULSE 56; RESP 16; O2SAT 100
--- NOTE | 2023-01-07 11:04 | PC.NURSE ---
pt returned from x-ray, vss, pt verbalizing 7/10 pain in left extremity. call veloz placed within reach. will continue to monitor.
--- NOTE | 2023-01-07 12:01 | ECG_ITS ---
Test Reason : left arm pain Blood Pressure : / mmHG Vent. Rate : 060 BPM Atrial Rate : 060 BPM P-R Int : 218 ms QRS Dur : 088 ms QT Int : 438 ms P-R-T Axes : 082 008 028 degrees QTc Int : 438 ms Poor data quality Sinus rhythm with 1st degree A-V block Otherwise normal ECG No previous ECGs available Referred By: Cassidy Kingston Electronically Signed By:VADIM BALL MD
[2023-01-07 12:47] LABS: MANUAL DIFF FLAG NO
[2023-01-07 12:59] LABS: Basophils Percent Auto 0.7 % (0-2); Eosinophils Absolute Auto 0.1 X10*3/uL (0.0-0.4); Eosinophils Percent Auto 3.2 % (0-4); Hematocrit 34.6 % (37.0-47.0); Hemoglobin 11.3 g/dl (12.0-16.0); Imm Gran Abs Auto 0.01 X10*3/uL (0.00-0.03); Imm Gran Pct Auto 0.2 % (0.0-0.4); Lymphocytes Absolute Auto 1.6 X10*3/uL (1.2-4.9); Lymphocytes Percent Auto 36.4 % (20-40); Mean Corpuscular HGB Conc 32.7 g/dl (31.0-35.0); Mean Corpuscular Hemoglobin 31.1 pg (27.0-33.0); Mean Corpuscular Volume 95.3 fL (80.0-98.0); Mean Platelet Volume 9.8 fL (9.4-12.3); Monocytes Absolute Auto 0.5 X10*3/uL (0.1-1.2); Monocytes Percent Auto 12.3 % (2-11); Neutrophils Absolute Auto 2.1 x10*3/uL (2.0-8.3); Neutrophils Percent Auto 47.2 % (45-73); Platelet Count 161 X10*3/uL (160-400); Red Blood Count 3.63 X10*6/uL (4.20-5.50); Red Cell Distribution Width 11.9 % (11.0-16.0); White Blood Count 4.4 X10*3/uL (4.8-10.8)
[2023-01-07 13:09] LABS: Alanine Aminotransferase 11 U/L (0-31); Albumin Level 3.7 g/dL (3.5-5.0); Alkaline Phosphatase 67 U/L (39-117); Anion Gap 11 (12-20); Aspartate Amino Transferase 13 U/L (5-31); Bilirubin Direct 0.1 mg/dL (0.0-0.5); Bilirubin Total 0.4 mg/dL (0.0-1.0); Blood Urea Nitrogen 20 mg/dL (9-16); Carbon Dioxide 27 mmol/L (22-29); Chloride 107 mmol/L (96-108); Creatinine Clr Calc Pharmacy 100.8; Estimated Glomerular Filt Rate > 60; Glucose Random 75 mg/dL (60-115); Magnesium 2.3 mg/dL (1.6-2.6); Potassium 4.2 mmol/L (3.3-5.1); Sodium 141 mmol/L (135-145); Total Protein 6.5 g/dL (6.5-8.0)
[2023-01-07 13:20] LABS: Troponin-I High Sensitivity < 2.7 ng/L (<3.5-17.0)
[2023-01-07] MEDS: Acetaminophen 325 MG TABLET 975 MG PO (13:25)
--- NOTE | 2023-01-07 13:27 | PC.NURSE ---
medication administered per provider order.
--- NOTE | 2023-01-07 14:39 | PC.NURSE ---
report given to RN at [facility] in [place] - pt waiting for ems to be transported.
== END 2023-01-07 15:12 | disposition skilled nursing facility (03) ==
PROVIDERS: Physician Assistant; Emergency Provider Emergency Medicine Emergency Medical Services
DX: S49.92XA Unspecified injury of left shoulder and upper arm, initial encounter (principal); M25.512 Pain in left shoulder; I44.0 Atrioventricular block, first degree; R26.81 Unsteadiness on feet; W01.10XA Fall on same level from slipping, tripping and stumbling with subsequent striking against unspecified object, initial encounter; Y93.9 Activity, unspecified; Y92.9 Unspecified place or not applicable; Y99.9 Unspecified external cause status; Z79.899 Other long term (current) drug therapy
CPT/HCPCS: 36415; 73030; 73060; 80048; 80076; 83735; 84484; 85025; 93005; 99285

== ENCOUNTER → 2023-01-07 12:01 | Outpatient (BNV) | payer MEDICARE, MEDICAID, SELFPAY | PROVIDERS: Emergency Provider Emergency Medicine Emergency Medical Services; Visit Provider Internal Medicine Cardiovascular Disease | DX: I44.0 Atrioventricular block, first degree (principal) | CPT/HCPCS: 93010 ==

== ENCOUNTER 2023-02-02 10:48 | Outpatient (REF) | payer MEDICARE, MEDICAID, SELFPAY ==
--- NOTE | ~2023-02-02 | MM_ITS ---
EXAMINATION: MM DIAGNOSTIC DIGITAL BREAST TOMOSYNTHESIS, BILATERAL CLINICAL INFORMATION: 6 month interval follow-up bilateral calcifications. COMPARISON: Mammography: 07/28/2022, and 07/20/2022. TECHNIQUE: Digital breast tomosynthesis is performed in both the craniocaudal and mediolateral oblique views along with computer-aided detection (CAD). Synthesized 2D images are generated from the tomosynthesis. In addition, 2-D spot magnification right CC and ML views, as well as 2-D spot magnification left CC and ML views were obtained. FINDINGS: There are scattered areas of fibroglandular density (ACR BI-RADS breast composition Category b). Spot magnification views demonstrate the calcifications in the left upper central breast are stable in number and configuration without aggressive change. Morphology is round and punctate. Likewise, calcifications in the central slightly outer right breast are also stable in number and configuration without aggressive change. Morphology is round and punctate. The parenchyma remains unchanged in appearance with a somewhat nodular pattern. No dominant masses, or areas of architectural distortion identified. Overall no change. MM/MM tomosynthesis diagnostic BI IMPRESSION: 1. Calcifications in both breasts are stable without aggressive changes. Six-month interval follow-up mammography with magnification views bilaterally recommended. 2. No findings suspicious for malignancy in either breast. ASSESSMENT: BI-RADS BI-RADS 3 - Probably benign finding(s) - 6 month follow-up suggested RECOMMENDATION: 6 Month F/U Results were provided to the patient at time of visit by the technologist. This patient's information was entered into a reminder system with a target due date for their next mammogram.
== END 2023-02-02 10:49 | disposition home or self-care (01) ==
LOC: HO.MAMMO 10:48
PROVIDERS: Visit Provider Obstetrics & Gynecology
DX: R92.1 Mammographic calcification found on diagnostic imaging of breast (principal)
CPT/HCPCS: 77062; 77066

== ENCOUNTER → 2023-02-02 11:00 | Outpatient (BNV) | payer MEDICARE, MEDICAID, SELFPAY | PROVIDERS: Visit Provider Radiology Diagnostic Radiology | DX: R92.1 Mammographic calcification found on diagnostic imaging of breast (principal) | CPT/HCPCS: 77062; 77066; G0279 ==

== ENCOUNTER 2023-03-28 11:31 | Outpatient (AMB) | payer MEDICARE, MEDICAID, SELFPAY ==
--- NOTE | 2023-03-28 11:43 | MHC.OFFVIS ---
Intake Intake Visit Reasons: 6m follow up Intake Note: Patient is Present for Follow Up Urology Medication:Bethanechol, Terazosin Antibiotic Allergies: Penicillins Blood Thinners: None PVR: 0ml Allergies codeine Allergy (Intermediate, Verified 01/07/23 09:53) Hives Penicillins Allergy (Intermediate, Verified 01/07/23 09:53) Rash aspirin Allergy (Mild, Verified 01/07/23 09:53) Rash Medication List - Last Reconciled 03/28/23 by Kris Valadez MD acetaminophen 650 mg PO QID PRN albuterol sulfate 90 mcg/actuation 2 puffs inhalation Q6H PRN atorvastatin 20 mg PO DAILY benztropine 0.5 mg PO BID PRN bethanechol chloride 100 mg (2 x 50 mg) PO TID 60 days calcium carbonate 1,200 mg PO DAILY [Cepacol (with benzocain-menth) 2 mariano PO Q8-10H PRN] cholecalciferol (vitamin D3) (Vitamin D3) 10 mcg PO DAILY famotidine 20 mg PO BID fluticasone propionate 50 mcg/actuation (Flonase Allergy Relief) 1 spray intranasal DAILY gabapentin 200 mg PO TID guaifenesin 200 mg PO Q4H PRN hydrocortisone 2.5% (Proctozone-HC) 1 appl MO BID PRN ibuprofen 600 mg PO Q6H PRN lactulose 20 grams PO BID lanolin [id number]-b.pet-ceres (Minerin Creme topical) 1 appl topical DAILY PRN levothyroxine 75 mcg PO DAILY lidocaine 4% 1 patch topical DAILY loratadine 10 mg PO DAILY PRN melatonin 3 mg PO BEDTIME peg-electrolyte soln 420 gram 240 mL PO ONCE PRN 1 day polyethylene glycol 3350 (Miralax) 17 grams PO DAILY PRN polyethylene glycol 3350 (Miralax) 17 grams PO DAILY PRN prazosin 2 mg PO BEDTIME 90 days propranolol 20 mg PO BID quetiapine (Seroquel) 50 mg PO BID risperidone (Risperdal) 1 mg PO BID sennosides (senna) 8.6 mg PO DAILY PRN sodium phosphates 19-7 gram/118 mL (Fleet Enema) 118 mL MO DAILY PRN terazosin 1 mg PO BEDTIME trazodone 25 mg PO Q6-8H PRN valproic acid 500 mg PO BID HPI HPI Comments History of Present Illness Details Kassy is a pleasant female. She is a patient of Dr. Masters. She seen for the following urologic conditions - incomplete bladder empty Kassy states feeling her bladder is not emptying Current PVR 0 cc On terazosin 2 mg, terazosin 1 mg and bethanechol 50 mg p.o. t.i.d. Increase bethanechol from 50 mg to 100 mg p.o. t.i.d. Two month tele follow-up Operation February for pelvic mass Incomplete bladder emptying Incomplete bladder emptying in setting of anti psychiatric medications Longstanding therapy risperidone and Seroquel Known problematic bowel emptying Baseline PVR 180 cc On prazosin 2 mg for nightmares Good response to bethanechol PFSH Medical History Dry eye syndrome of bilateral lacrimal glands Dry eyes Agitation Nausea Wheezing Cough Chronic pain Seasonal allergic rhinitis GERD (gastroesophageal reflux disease) Chronic pharyngitis Skin cancer Uterine cancer Back pain Ovarian cyst Malignant melanoma of skin Personal history of malignant neoplasm of uterus Unsteadiness on feet Chronic cough Sleep terrors Muscle weakness Diffuse traumatic brain injury Spinal stenosis Suicidal ideation Constipation Insomnia Hyperlipidemia Hypothyroidism Schizo affective schizophrenia COVID-19 Surgical History Hx of colonoscopy Social History Housing Other:: [facility] Are you a primary director of healthcare systems to a significant other at home: No Do you presently have visiting nurse or other home services: No Alcohol intake: never Patient Tobacco Use Status: Never used Tobacco Advance Directives Date on File: 11/10/22 Sexual orientation: Straight/Heterosexual Gender identity: Female Review of Systems Const Denies chills and Denies fever(s) Card Reports no additional complaints and Denies syncope Resp Denies cough GI Denies abdominal pain and Denies heartburn Reports as per HPI and Denies change in libido Neuro Denies syncope Psych Denies change in libido Endo Denies change in libido Physical Exam Const General: cooperative, healthy appearing, comfortable and no acute distress Orientation/consciousness: patient oriented x3 HEENT Face and sinus: Yes normal facial exam Mouth: moist mucous membranes Neck Neck: Yes normal visual inspection, Yes full ROM and Yes trachea midline Chest Chest palpation & inspection: normal inspection of the chest Resp Effort & Inspection: normal respiratory effort, able to speak in complete sentences and no respiratory distress GI Inspection: Yes normal to inspection Back/Spine/Pelvis Cervical Spine: normal cervical lordosis Thoracic/Lumbar Spine: thoracic and lumbar spine normal to inspection Skin General skin exam: no rashes or lesions noted Neuro General: patient oriented x3, gait normal, tone normal and moves all extremities Extrem General: Yes normal to inspection and Yes capillary refill normal Office Procedures Post Void Residual Post Residual Void Post Void Residual (PVR): 0 [id number]-[id number] Void Residual by ultrasound Assessment & Plan Assessment & Plan (1) Urinary retention with incomplete bladder emptying: Code(s): R33.9 - Retention of urine, unspecified Plan Two month follow-up Orders: Orders AMB Post Void Residual by ultrasound Today R33.9 - Retention of urine, unspecified Patient Instructions: Imaging studies, laboratory and physical exam results were discussed and reviewed in detail. No major barriers to patient understanding were identified. An opportunity to ask questions regarding the treatment plan was provided. All questions were answered. The patient expressed understanding and agreement with the above treatment plan. The patient is aware they should contact our office by phone for worsening of their current condition or the appearance of new urologic symptoms. Compliance is encouraged with any medications and followup testing that is ordered. It is a privilege to participate in the urologic care of your patient. If you have any questions or concerns regarding treatment for the above conditions, or other urologic issues, please do not hesitate to contact me. The office telephone contact is [phone]. This note is constructed using voice recognition software. While every effort has been made to ensure accuracy vibrating screen operator errors may have been included. Yours sincerely, Dr Kris Valadez MD, [facility] - Urology Providers of Expert, Compassionate Care for the Genitourinary System Coding Level of Care Code Est Pt Level 4 (37085) Diagnoses Urinary retention with incomplete bladder emptying R33.9 CPT Codes Post Residual Void - PVR CPT Code: 39550-Gdqp Void Residual by ultrasound ([id number])
== END 2023-03-28 12:05 | disposition home or self-care (01) ==
PROVIDERS: Visit Provider Urology
DX: R33.9 Retention of urine, unspecified (principal)
CPT/HCPCS: 99214

== ENCOUNTER → 2023-03-28 11:31 | Outpatient (BNVA) | payer MEDICARE, MEDICAID, SELFPAY | PROVIDERS: Visit Provider Urology | DX: R33.9 Retention of urine, unspecified (principal) | CPT/HCPCS: 51798; 99212 ==

== ENCOUNTER 2023-05-01 09:58 | Day surgery (SDC) | payer MEDICARE, MEDICAID, SELFPAY ==
--- NOTE | 2023-04-30 13:10 | P.CONAN_ITS ---
Documented by User: Amy Frias NP 04/30/23 13:12 HPI - Anesthesia Eval Consult details Narrative: 57yo F for Colonoscopy [facility] Active Problems Active Problems: All Active Problems (Updated 01/08/23 @ 00:25 by Fantasma Rahman) Colon polyps (Acute) Hx of colonoscopy (Acute) Well woman exam (Acute) Urinary retention with incomplete bladder emptying (Acute) Complex ovarian cyst (Acute) Encounter for screening colonoscopy (Acute) Pelvic mass (Acute) Constipation (Acute) Ovarian cyst (Acute) Past Medical History Medical History Dry eye syndrome of bilateral lacrimal glands Dry eyes Agitation Nausea Wheezing Cough Chronic pain Seasonal allergic rhinitis GERD (gastroesophageal reflux disease) Chronic pharyngitis Skin cancer Uterine cancer Back pain Ovarian cyst Malignant melanoma of skin Personal history of malignant neoplasm of uterus Unsteadiness on feet Chronic cough Sleep terrors Muscle weakness Diffuse traumatic brain injury Spinal stenosis Suicidal ideation Constipation Insomnia Hyperlipidemia Hypothyroidism Schizo affective schizophrenia COVID-19 Family History Family history of problems with anesthesia: No Surgical History Surgical History Hx of colonoscopy History of Problems with Anesthesia: No Social History Social History Housing Other:: [facility] Are you a primary attending ambulatory care to a significant other at home: No Do you presently have visiting nurse or other home services: No Alcohol intake: never Patient Tobacco Use Status: Never used Tobacco Are you DNR?: No Advance Directives: No Advance Directives Information Provided: Yes Advance Directives Date on File: 11/10/22 Nutrition Risks: No Nutritional Risk Sexual orientation: Straight/Heterosexual Gender identity: Female Meds Allergies Allergy/AdvReac Type Severity Reaction Status Date / Time codeine Allergy Intermediate Hives Verified 01/07/23 09:53 Penicillins Allergy Intermediate Rash Verified 01/07/23 09:53 aspirin Allergy Mild Rash Verified 01/07/23 09:53 Home Medications Medication Instructions Recorded Confirmed Last Taken Type albuterol sulfate 90 mcg/actuation 2 puff inhalation Q6H PRN Wheezing 06/27/22 03/28/23 Unknown History aerosol inhaler atorvastatin 20 mg tablet 20 mg PO DAILY 06/27/22 03/28/23 Unknown History fluticasone propionate 50 1 spray intranasal DAILY 06/27/22 03/28/23 Unknown History mcg/actuation nasal spray,suspension (Flonase Allergy Relief) gabapentin 100 mg capsule 200 mg PO TID 06/27/22 03/28/23 Unknown History levothyroxine 75 mcg capsule 75 mcg PO DAILY 06/27/22 03/28/23 Unknown History propranolol 20 mg tablet 20 mg PO BID 06/27/22 03/28/23 Unknown History quetiapine 50 mg tablet (Seroquel) 50 mg PO BID 06/27/22 03/28/23 Unknown History trazodone 50 mg tablet 25 mg PO Q6-8H PRN Anxiety 06/27/22 03/28/23 Unknown History valproic acid 250 mg capsule 500 mg PO BID 06/27/22 03/28/23 Unknown History Cepacol (with benzocain-menth) 2 mariano PO Q8-10H PRN Sore Throat 11/08/22 03/28/23 Unknown History acetaminophen 650 mg tablet 650 mg PO QID PRN Fever 11/08/22 03/28/23 Unknown History benztropine 0.5 mg tablet 0.5 mg PO BID PRN Muscle Spasm 11/08/22 03/28/23 Unknown History calcium carbonate 600 mg calcium 1,200 mg PO DAILY 11/08/22 03/28/23 Unknown History (1,500 mg) tablet cholecalciferol (vitamin D3) 10 10 mcg PO DAILY 11/08/22 03/28/23 Unknown History mcg (400 unit) capsule (Vitamin D3) famotidine 20 mg tablet 20 mg PO BID 11/08/22 03/28/23 Unknown History guaifenesin 100 mg/5 mL oral liquid 200 mg PO Q4H PRN Cough 11/08/22 03/28/23 Unknown History ibuprofen 600 mg tablet 600 mg PO Q6H PRN Pain 11/08/22 03/28/23 Unknown History lactulose 10 gram/15 mL oral 20 g PO BID 11/08/22 03/28/23 Unknown History solution lanolin alcohols-mineral 1 appl topical DAILY PRN Dry Skin 11/08/22 03/28/23 Unknown History oil-w.petrolatum-ceresin topical cream (Minerin Creme topical) lidocaine 4 % topical patch 1 patch topical DAILY 11/08/22 03/28/23 Unknown History loratadine 10 mg tablet 10 mg PO DAILY PRN Allergy Symptoms 11/08/22 03/28/23 Unknown History melatonin 3 mg tablet 3 mg PO BEDTIME 11/08/22 03/28/23 Unknown History polyethylene glycol 3350 17 gram 17 g PO DAILY PRN Constipation 11/08/22 03/28/23 Unknown History oral powder packet (Miralax) risperidone 1 mg tablet (Risperdal) 1 mg PO BID 11/08/22 03/28/23 Unknown History sennosides 8.6 mg capsule (senna) 8.6 mg PO DAILY PRN Constipation 11/08/22 03/28/23 Unknown History sodium phosphates 19 gram-7 118 ml MD DAILY PRN Constipation 11/08/22 03/28/23 Unknown History gram/118 mL enema (Fleet Enema) terazosin 1 mg capsule 1 mg PO BEDTIME 11/08/22 03/28/23 Unknown History Exam Pertinent Lab Results Pertinent Lab Results: Laboratory Tests 01/07/23 12:43 WBC 4.4 L Hgb 11.3 L Hct 34.6 L Plt Count 161 Sodium 141 Potassium 4.2 Chloride 107 Carbon Dioxide 27 BUN 20 H Creatinine 0.80 Narrative Narrative: EKG 12/2022 Vent. Rate : 060 BPM Atrial Rate : 060 BPM P-R Int : 218 ms QRS Dur : 088 ms QT Int : 438 ms P-R-T Axes : 082 008 028 degrees QTc Int : 438 ms Poor data quality Sinus rhythm with 1st degree A-V block Otherwise normal ECG No previous ECGs available Assessment and Plan Assessment Anesthesia Assessment: Chart Reviewed Final Anesthetic Review Family History of Problems with Anesthesia: No History of Problems with Anesthesia: No Documented by User: Willian Dc MD 05/01/23 10:46 PMFSH Past Medical History Medical History Dry eye syndrome of bilateral lacrimal glands Dry eyes Agitation Nausea Wheezing Cough Chronic pain Seasonal allergic rhinitis GERD (gastroesophageal reflux disease) Chronic pharyngitis Skin cancer Uterine cancer Back pain Ovarian cyst Malignant melanoma of skin Personal history of malignant neoplasm of uterus Unsteadiness on feet Chronic cough Sleep terrors Muscle weakness Diffuse traumatic brain injury Spinal stenosis Suicidal ideation Constipation Insomnia Hyperlipidemia Hypothyroidism Schizo affective schizophrenia COVID-19 Surgical History Surgical History Hx of colonoscopy Social History Social History Housing Other:: [facility] Are you a primary attending ambulatory care to a significant other at home: No Do you presently have visiting nurse or other home services: No Alcohol intake: never Patient Tobacco Use Status: Never used Tobacco Are you DNR?: No Advance Directives: No Advance Directives Information Provided: Yes Advance Directives Date on File: 11/10/22 Nutrition Risks: No Nutritional Risk Sexual orientation: Straight/Heterosexual Gender identity: Female Meds Allergies Allergy/AdvReac Type Severity Reaction Status Date / Time codeine Allergy Intermediate Hives Verified 01/07/23 09:53 Penicillins Allergy Intermediate Rash Verified 01/07/23 09:53 aspirin Allergy Mild Rash Verified 01/07/23 09:53 Home Medications Medication Instructions Recorded Confirmed Last Taken Type albuterol sulfate 90 mcg/actuation 2 puff inhalation Q6H PRN Wheezing 06/27/22 03/28/23 Unknown History aerosol inhaler atorvastatin 20 mg tablet 20 mg PO DAILY 06/27/22 03/28/23 Unknown History fluticasone propionate 50 1 spray intranasal DAILY 06/27/22 03/28/23 Unknown History mcg/actuation nasal spray,suspension (Flonase Allergy Relief) gabapentin 100 mg capsule 200 mg PO TID 06/27/22 03/28/23 Unknown History levothyroxine 75 mcg capsule 75 mcg PO DAILY 06/27/22 03/28/23 Unknown History propranolol 20 mg tablet 20 mg PO BID 06/27/22 03/28/23 Unknown History quetiapine 50 mg tablet (Seroquel) 50 mg PO BID 06/27/22 03/28/23 Unknown History trazodone 50 mg tablet 25 mg PO Q6-8H PRN Anxiety 06/27/22 03/28/23 Unknown History valproic acid 250 mg capsule 500 mg PO BID 06/27/22 03/28/23 Unknown History Cepacol (with benzocain-menth) 2 mariano PO Q8-10H PRN Sore Throat 11/08/22 03/28/23 Unknown History acetaminophen 650 mg tablet 650 mg PO QID PRN Fever 11/08/22 03/28/23 Unknown History benztropine 0.5 mg tablet 0.5 mg PO BID PRN Muscle Spasm 11/08/22 03/28/23 Unknown History calcium carbonate 600 mg calcium 1,200 mg PO DAILY 11/08/22 03/28/23 Unknown History (1,500 mg) tablet cholecalciferol (vitamin D3) 10 10 mcg PO DAILY 11/08/22 03/28/23 Unknown History mcg (400 unit) capsule (Vitamin D3) famotidine 20 mg tablet 20 mg PO BID 11/08/22 03/28/23 Unknown History guaifenesin 100 mg/5 mL oral liquid 200 mg PO Q4H PRN Cough 11/08/22 03/28/23 Unknown History ibuprofen 600 mg tablet 600 mg PO Q6H PRN Pain 11/08/22 03/28/23 Unknown History lactulose 10 gram/15 mL oral 20 g PO BID 11/08/22 03/28/23 Unknown History solution lanolin alcohols-mineral 1 appl topical DAILY PRN Dry Skin 11/08/22 03/28/23 Unknown History oil-w.petrolatum-ceresin topical cream (Minerin Creme topical) lidocaine 4 % topical patch 1 patch topical DAILY 11/08/22 03/28/23 Unknown History loratadine 10 mg tablet 10 mg PO DAILY PRN Allergy Symptoms 11/08/22 03/28/23 Unknown History melatonin 3 mg tablet 3 mg PO BEDTIME 11/08/22 03/28/23 Unknown History polyethylene glycol 3350 17 gram 17 g PO DAILY PRN Constipation 11/08/22 03/28/23 Unknown History oral powder packet (Miralax) risperidone 1 mg tablet (Risperdal) 1 mg PO BID 11/08/22 03/28/23 Unknown History sennosides 8.6 mg capsule (senna) 8.6 mg PO DAILY PRN Constipation 11/08/22 03/28/23 Unknown History sodium phosphates 19 gram-7 118 ml MD DAILY PRN Constipation 11/08/22 03/28/23 Unknown History gram/118 mL enema (Fleet Enema) terazosin 1 mg capsule 1 mg PO BEDTIME 11/08/22 03/28/23 Unknown History Exam Airway Mallampati Class: III TM Dist: >3cm Neck ROM: Limited Heart: rrr Lungs: cta Assessment and Plan Assessment Anesthesia Assessment: Anesthesia Plan Discussed Final Anesthetic Review NPO: Yes ASA Class: III Final Preanesthetic Review: No Changes in Pt Med Stat, Meds/Allgs Chart Reviewed, Consent Obtained/Reviewed and Anes Risks/Benef Reviewed Patient Risk: Intermediate Procedure Risk: Low Anesthetic Plan Anesthetic Plan: MAC: and Agree w/ Assess. and Plan Disposition: Standard PACU
[2023-05-01 09:59] VITALS: BP 145/85; PULSE 87; RESP 18; TEMP 36.1; O2SAT 97
[2023-05-01 10:07] VITALS: BMI 38.4
[2023-05-01] MEDS: Lactated Ringers 1,000 ML 100 ML IVCONT (10:31)
--- NOTE | 2023-05-01 11:11 | MHC.SHP ---
Pre-Procedural Eval Section A Date of Service: 05/01/23 Section B Chief Complaint: colon polyp and poor prep in past Relevant Family History (Specify if Yes): No Relevant Social History: None Present Medications: see Short Stay Collaborative assessment Medical History: Significant History (Agitation Back pain Chronic cough Chronic pain Chronic pharyngitis Constipation Cough COVID-19 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 Dry eyes GERD (gastroesophageal reflux disease) Hyperlipidemia Hypothyroidism Insomnia Malignant melanoma of skin Muscle weaknes) History of Previous Operations: Relevant previous surgery/procedure and date(s) (colonoscopy) Allergies: Allergies Allergy/AdvReac Type Severity Reaction Status Date / Time codeine Allergy Intermediate Hives Verified 01/07/23 09:53 Penicillins Allergy Intermediate Rash Verified 01/07/23 09:53 aspirin Allergy Mild Rash Verified 01/07/23 09:53 Review of Systems Sugical H&P ROS: Negative: Constitution, Cardiovascular, Respiratory, Neurological, Psychiatric, Hem-Onc, Allergic/Immunologic, Gastrointestinal, Genitourinary, Musculoskeletal, Integumentary, Endocrine and Eyes/Ears/Nose/Throat Exam Surgical H&P Exam: Normal: HEENT, Normal: Heart, Normal: Lungs, Normal: Extremities, Normal: Abdomen, Normal: Skin and Normal: Neurological Plan Diagnosis/Plan: Unchanged I have reviewed the history and physical and performed a pertinent physical examination on my patient. No changes have occurred unless specified. Time Spent With Patient Time: Total time managing care of this patient today ____ minutes.
--- NOTE | 2023-05-01 12:19 | W.PM.OPN ---
Operative Note Operative Note Date of Service: 05/01/23 Narrative: Operative Information Procedure Description: Colonoscopy Indication: hx of colon polyp and poor prep Anesthesia: MAC COLONOSCOPY Instrument: Olympus variable stiffness ADULT scope 190L Colonoscopy Monitoring: Vital signs and clinical assessment, continuous EKG monitoring, Pulse oximetry, Carbon Dioxide monitoring and blood pressure monitoring were done throughout the procedure. Colon withdrawal time was 7 minutes. Procedure: The patient was placed in the left lateral decubitis position and pre-procedure medications were administered. After a digital rectal examination of the ano-rectum, the video colonoscope was inserted into the rectum and advanced through the colon to the cecum/TI. The colonoscope was slowly withdrawn in a retrograde panoramic fashion and the colon mucosa was carefully examined including a retroflexed view of the rectum. Findings and interventions are described below. Procedure Difficulty: difficult due to tortuous colon Findings: Terminal Ileum-normal Cecum:normal Ascending Colon: normal Transverse Colon - 7-8 mm sessile polyp removed with cold snare Descending Colon:normal Sigmoid Colon: normal Rectum: Retroflexion with small internal hemorrhoids, grade I, 6-8 mm sessile polyp removed with cold snare Anorectum - normal Colon preparation: [place] Bowel Preparation Scale Right colon; 2 Transverse colon: 2 Left colon; 2 (0 = Unprepared colon segment with mucosa not seen due to solid stool that cannot be cleared. 1 = Portion of mucosa of the colon segment seen, but other areas of the colon segment not well seen due to staining, residual stool and/or opaque liquid. 2 = Minor amount of residual staining, small fragments of stool and/or opaque liquid, but mucosa of colon segment seen well. 3 = Entire mucosa of colon segment seen well with no residual staining, small fragments of stool or opaque liquid) Impression and Post Procedure Diagnosis: polyps internal hemorrhoids Plan: High fiber diet leaflet Avoid straining at stool, epsom salts and sitz bath, anusol supps or cream Repeat Colonoscopy in 5-6 years due to polyps or earlier if clinically indicated Above findings were reviewed with the patient and relevant handouts were provided if indicated.
[2023-05-01 12:22] VITALS: BP 126/77; PULSE 80; RESP 16; TEMP 36.6; O2SAT 98
[2023-05-01 12:37] VITALS: BP 139/82; PULSE 82; RESP 16; TEMP 36.6; O2SAT 100
== END 2023-05-01 13:05 | disposition home or self-care (01) ==
PROVIDERS: PCP Hospitalist; Visit Provider Internal Medicine Gastroenterology
PROC: 0DJD8ZZ Inspection of Lower Intestinal Tract, Via Natural or Artificial Opening Endoscopic (ICD-10-PCS; CPT 45378; principal; 2023-05-01 11:00)
DX: Z12.11 Encounter for screening for malignant neoplasm of colon (principal); K63.5 Polyp of colon; K64.8 Other hemorrhoids; K56.2 Volvulus; Z86.010 Personal history of colon polyps; K59.00 Constipation, unspecified; E78.5 Hyperlipidemia, unspecified; E03.9 Hypothyroidism, unspecified; K21.9 Gastro-esophageal reflux disease without esophagitis; E66.9 Obesity, unspecified; Z68.38 Body mass index [BMI] 38.0-38.9, adult; Z85.42 Personal history of malignant neoplasm of other parts of uterus; Z85.820 Personal history of malignant melanoma of skin; Z79.899 Other long term (current) drug therapy; Z79.02 Long term (current) use of antithrombotics/antiplatelets
CPT/HCPCS: 45385; 88305; J2704

== ENCOUNTER → 2023-05-01 09:58 | Outpatient (BNV) | payer MEDICARE, MEDICAID, SELFPAY | PROVIDERS: PCP Hospitalist; Visit Provider Internal Medicine Gastroenterology | DX: Z12.11 Encounter for screening for malignant neoplasm of colon (principal); Z86.010 Personal history of colon polyps; K63.5 Polyp of colon; K64.0 First degree hemorrhoids | CPT/HCPCS: 45385 ==

== ENCOUNTER → 2023-05-31 11:39 | Outpatient (BNVA) | payer MEDICARE, MEDICAID, SELFPAY | PROVIDERS: PCP Hospitalist; Visit Provider Urology ==

== ENCOUNTER 2023-05-31 11:48 | Outpatient (AMB) | payer MEDICARE, MEDICAID, SELFPAY ==
--- NOTE | 2023-05-31 11:41 | MHC.OFFVIS ---
Intake Intake Visit Reasons: 2m follow up Intake Note: Patient is present for telephone follow up Allergies codeine Allergy (Intermediate, Verified 01/07/23 09:53) Hives Penicillins Allergy (Intermediate, Verified 01/07/23 09:53) Rash aspirin Allergy (Mild, Verified 01/07/23 09:53) Rash HPI HPI Comments History of Present Illness Details Kassy is a pleasant female. She is a patient of Dr. Masters. She seen for the following urologic conditions - incomplete bladder empty Telemedicine Evaluation 15 min Consultation [employer] Too Video attempted Discussed with supervising nurse Kassy note stating any issues with urination No current accidents Would continue with combination of prazosin, bethanechol 100 mg p.o. t.i.d. Six month follow-up Incomplete bladder emptying Incomplete bladder emptying in setting of anti psychiatric medications Longstanding therapy risperidone and Seroquel Known problematic bowel emptying Baseline PVR 180 cc On prazosin 2 mg for nightmares Good response to bethanechol PFSH Medical History Dry eye syndrome of bilateral lacrimal glands Dry eyes Agitation Nausea Wheezing Cough Chronic pain Seasonal allergic rhinitis GERD (gastroesophageal reflux disease) Chronic pharyngitis Skin cancer Uterine cancer Back pain Ovarian cyst Malignant melanoma of skin Personal history of malignant neoplasm of uterus Unsteadiness on feet Chronic cough Sleep terrors Muscle weakness Diffuse traumatic brain injury Spinal stenosis Suicidal ideation Constipation Insomnia Hyperlipidemia Hypothyroidism Schizo affective schizophrenia COVID-19 Surgical History Hx of colonoscopy Social History Housing Other:: shelter Are you a primary care manager cna to a significant other at home: No Do you presently have visiting nurse or other home services: No Alcohol intake: never Patient Tobacco Use Status: Never used Tobacco Advance Directives Date on File: 11/10/22 Sexual orientation: Straight/Heterosexual Gender identity: Female Review of Systems Const All systems reviewed & are unremarkable except as noted in HPI and below Reports no additional complaints Resp Reports no additional complaints GI Reports no additional complaints Reports as per HPI Musc Reports no additional complaints Physical Exam Telemedicine evaluation Appropriate responses Regular breathing rate and rhythm HEENT Head: Yes normal to inspection Ears: hearing grossly normal bilaterally Eyes General: appearance normal, both eyes and all related structures Neck Neck: Yes normal visual inspection Chest Chest palpation & inspection: normal inspection of the chest Resp Effort & Inspection: normal respiratory effort and able to speak in complete sentences Assessment & Plan Assessment & Plan (1) Urinary retention with incomplete bladder emptying: Code(s): R33.9 - Retention of urine, unspecified Plan Six month follow-up PVR Patient Instructions: Imaging studies, laboratory and physical exam results were discussed and reviewed in detail. No major barriers to patient understanding were identified. An opportunity to ask questions regarding the treatment plan was provided. All questions were answered. The patient expressed understanding and agreement with the above treatment plan. The patient is aware they should contact our office by phone for worsening of their current condition or the appearance of new urologic symptoms. Compliance is encouraged with any medications and followup testing that is ordered. It is a privilege to participate in the urologic care of your patient. If you have any questions or concerns regarding treatment for the above conditions, or other urologic issues, please do not hesitate to contact me. The office telephone contact is [phone]. This note is constructed using voice recognition software. While every effort has been made to ensure accuracy ob/gyn nurse errors may have been included. Yours sincerely, Dr Kris Valadez MD, [facility] - Urology Providers of Expert, Compassionate Care for the Genitourinary System Telehealth Telehealth Location of provider rendering services: practice address Location of patient: address on file Patient Identification confirmed using: Name, : Yes Telehealth method: video Patient verbally consented to treatment: Yes Patient verbally consented to billing insurance company: Yes Patient informed of any privacy concerns related to visit: Yes Coding Level of Care Code Tele Est Pt Level 3 (65054) Diagnoses Urinary retention with incomplete bladder emptying R33.9
== END 2023-05-31 12:13 | disposition home or self-care (01) ==
PROVIDERS: PCP Hospitalist; Visit Provider Urology
DX: R33.9 Retention of urine, unspecified (principal)
CPT/HCPCS: 99213

== ENCOUNTER 2023-09-03 13:00 | Outpatient (REF) | payer MEDICARE, MEDICAID, SELFPAY ==
--- NOTE | ~2023-09-03 | MM_ITS ---
EXAMINATION: MM DIAGNOSTIC DIGITAL BREAST TOMOSYNTHESIS, BILATERAL CLINICAL INFORMATION: Follow-up probably benign bilateral calcifications. Patient also due for bilateral screening. COMPARISON: Mammography: 02/02/2023, 07/28/2022, and 07/20/2022 TECHNIQUE: Digital breast tomosynthesis is performed in both the craniocaudal and mediolateral oblique views along with computer-aided detection (CAD). Synthesized 2D images are generated from the tomosynthesis. FINDINGS: There are scattered areas of fibroglandular density (ACR BI-RADS breast composition Category b). Spot magnification views demonstrate the calcifications in the bilateral upper central breasts are stable in number and configuration without aggressive change. Morphology is round and punctate. Likewise, calcifications in the central slightly outer left breast are also stable in number and configuration without aggressive change. Several layer suggesting milk of calcium. Morphology is otherwise round and punctate. No suspicious distribution identified. The parenchyma remains unchanged in appearance with a somewhat nodular pattern bilaterally. No dominant masses, or areas of architectural distortion identified. Overall no change. MM/MM tomosynthesis diagnostic BI IMPRESSION: There are no findings suspicious for malignancy. Examination is stable. Probably benign calcifications bilaterally, for which 12 month follow-up suggested to include diagnostic bilateral magnification views. ASSESSMENT: BI-RADS BI-RADS 3 - Probably benign finding(s) - 12 month follow-up suggested RECOMMENDATION: 12 month diagnostic follow up Results were provided to the patient at time of visit by the technologist. This patient's information was entered into a reminder system with a target due date for their next mammogram.
== END 2023-09-03 13:01 | disposition home or self-care (01) ==
LOC: HO.MAMMO 13:00
PROVIDERS: PCP Hospitalist; Visit Provider Obstetrics & Gynecology
DX: R92.1 Mammographic calcification found on diagnostic imaging of breast (principal)
CPT/HCPCS: 77062; 77066

== ENCOUNTER → 2023-09-03 13:00 | Outpatient (BNV) | payer MEDICARE, MEDICAID, SELFPAY | PROVIDERS: PCP Hospitalist; Visit Provider Radiology Diagnostic Radiology | DX: R92.1 Mammographic calcification found on diagnostic imaging of breast (principal) | CPT/HCPCS: 77066; G0279 ==